=== PATIENT | male | born 1940 | race Caucasian/White ===

== ENCOUNTER 2016-10-06 20:34 | Emergency (ER) | payer MEDICARE, MEDICAID ==
--- NOTE | 2016-10-07 19:34 | ER ---
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 He states he cut his left index finger on knife in kitchen tonight. No loss of function. Last tetanus unknown. Exam remarkable for nontoxic, afebrile male with 3 cm superficial laceration, dorsal medial aspect of thumb near the web space. Full range of motion without deformity. Wound anesthetized with Xylocaine 1%, irrigated, closed with 4-0 Prolene x3, bacitracin and dressing. Tdap 0.5 mL updated. Advised to use soap and water, triple antibiotic, and follow up Dr. Mccartney in 7-10 days for suture removal. Ari Figueroa MD/ nikia JOB #: [id number] CC: Juan Hoskins MD, Attending Physician Kash Mccartney MD, Family Physician Kash Mccartney MD
== END 2016-10-06 21:20 | disposition home or self-care (01) ==
LOC: ER 20:34
PROC: 0HQGXZZ Repair Left Hand Skin, External Approach (ICD-10-PCS; principal; 2016-10-06)
DX: S61.012A Laceration without foreign body of left thumb without damage to nail, initial encounter (principal); Z23 Encounter for immunization; W26.0XXA Contact with knife, initial encounter; Y92.009 Unspecified place in unspecified non-institutional (private) residence as the place of occurrence of the external cause

== ENCOUNTER → 2016-10-16 | Outpatient (CLI) | payer MEDICARE, MEDICAID | END | disposition home or self-care (01) | LOC: PTH.S 13:29 → RAD.S 14:30 | DX: G40.209 Localization-related (focal) (partial) symptomatic epilepsy and epileptic syndromes with complex partial seizures, not intractable, without status epilepticus (principal); G31.9 Degenerative disease of nervous system, unspecified; R29.6 Repeated falls ==